=== PATIENT | male | born 1965 | race Caucasian/White ===

== ENCOUNTER 2022-06-21 17:53 | Inpatient (IN) | payer SELFPAY ==
[2022-06-21 20:33] LABS: Urine Blood Negative (Negative); Urine Glucose Negative (Negative); Urine Protein Negative (Negative); Urine Specific Gravity >=1.030 (1.005-1.030); Urine pH 5.5 (5.0-7.0)
--- NOTE | 2022-06-21 20:37 | RAD REPORT ---
EXAM DESCRIPTION: CT - CTHCSPWOC - 06/21/2022 8:24 pm CLINICAL HISTORY: Trauma, head and neck injury. AMS, fall COMPARISON: No comparisons TECHNIQUE: Axial 5 mm thick images of the head were obtained. Axial 2 mm thick images of the cervical spine were obtained with sagittal and coronal reconstruction images generated and reviewed. All CT scans are performed using dose optimization technique as appropriate and may include automated exposure control or mA/KV adjustment according to patient size. FINDINGS: CT HEAD WITHOUT CONTRAST: No acute hemorrhage, hydrocephalus or extra-axial collection is identified.No areas of brain edema or midline shift. Mild ethmoid sinus opacification.Mild thickening of both maxillary antra.The calvarium is intact. CT CERVICAL SPINE WITHOUT CONTRAST: No fracture or subluxation.Mild lower cervical degenerative changes are present. 2-3 mm degenerative anterolisthesis of C4 on 5.No prevertebral soft tissues swelling is identified. IMPRESSION: No acute intracranial or cervical spine findings. Mild lower cervical spondylosis.
[2022-06-21 20:57] LABS: Barbiturates NEGATIVE (NEGATIVE); Benzodiazepines POSITIVE (NEGATIVE); Cocaine NEGATIVE (NEGATIVE); METHAMPHETAM NEGATIVE (NEGATIVE); Methadone NEGATIVE (NEGATIVE); Opiates NEGATIVE (NEGATIVE); Phencyclidine NEGATIVE (NEGATIVE); THC Cannibis NEGATIVE (NEGATIVE)
[2022-06-21] MEDS ORDERED: NA CHLORIDE 0.9% 1,000 ML ONE (21:08)
[2022-06-21 21:34] LABS: Absolute Lymphocytes (CBC) 1.6 K/uL (0.7-4.9); Hematocrit 49.3 % (39.6-49.0); Lymphocytes % 15.7 % (15.3-44.8); MCV 89.3 fL (80-100); MPV 7.1 fL (7.6-11.3); RBC Red Blood Cell Count 5.53 M/uL (4.33-5.43)
[2022-06-21 21:42] LABS: Protime INR 0.92
[2022-06-21 21:57] LABS: ALT/SGPT 23 U/L (12-78); AST/SGOT 14 U/L (15-37); Albumin 3.1 g/dL (3.4-5.0); Alkaline Phosphatase 53 U/L (45-117); BUN Blood Urea Nitrogen 10 mg/dL (7-18); Bicarbonate 30 mmol/L (21-32); Bilirubin Direct 0.1 mg/dL (0-0.2); Bilirubin Total 0.5 mg/dL (0.2-1.0); Glomerular Filtration Rate 88 ml/min (=/>90); Glucose Level 96 mg/dL (74-106); Potassium 4.3 mmol/L (3.5-5.1); Protein, Total 6.4 g/dL (6.4-8.2); Sodium Level 140 mmol/L (136-145)
--- NOTE | 2022-06-21 23:15 | ER ---
Nurse's Notes [facility] Name: Julio César Farah Age: 57 yrs Sex: Male : 1965 Arrival Date: 06/21/2022 Time: 18:07 Bed 19 Private MD: Diagnosis: Poisoning by benzodiazepines, intentional self-harm Presentation: 06/21 18:07 Chief complaint: EMS states: "pt had a fall about an hour ago. the people that the pt edu was with caught him so he did not hit his head. he has been very drowsy and sleepy. his pupils have been pinpoint. he is about A\\T\\O X 1 at best. we gave nasal Narcan to be sure, but no affect. BGL was 85. otherwise stable vitals.". Coronavirus screen: At this time, the client does not indicate any symptoms associated with coronavirus-19. Ebola Screen: No symptoms or risks identified at this time. Initial Sepsis Screen: Does the patient meet any 2 criteria? No. Patient's initial sepsis screen is negative. Does the patient have a suspected source of infection? No. Patient's initial sepsis screen is negative. Risk Assessment: Do you want to hurt yourself or someone else? Patient reports no desire to harm self or others. Onset of symptoms was June 21, 2022. 18:07 Method Of Arrival: EMS: [facility] jd3 18:07 Acuity: TAWNYA 2 jd3 Historical: - Allergies: 18:12 Unable to obtain; jd3 - Home Meds: 18:12 Unable to obtain [Active]; jd3 - PMHx: 18:12 Unable to Obtain; jd3 - PSHx: 18:12 Unable to Obtain; jd3 - Immunization history:: Adult Immunizations unknown. - Social history:: Smoking status: unknown. - Family history:: not pertinent. - Hospitalizations: : No recent hospitalization is reported. Screenin:13 Abuse screen: Denies threats or abuse. Nutritional screening: No deficits noted. ll1 Tuberculosis screening: No symptoms or risk factors identified. Fall Risk IV access (20 points). Mental Status- Overestimates/Forgets Limitations (15 pts.). Total Garcia Fall Scale indicates Low Risk Score (25-44 pts). Fall prevention measures have been instituted. Side Rails Up X 2 Placed close to Nursing Station Frequent Obs/Assesments occuring Family Present and informed to notify staff if they need to leave bedside As available Patient and Family Educated on Fall Prevention Program and strategies. Assessment: 21:19 General: Appears in no apparent distress. Behavior is drowsy, Smells of alcohol. Pain: as6 Denies pain. Neuro: Level of Consciousness is lethargic. Respiratory: Respiratory effort is even, unlabored. 22:39 General: pt sleeping at this time. as6 23:09 General: pt removed vital sign equipment, got out of bed unassisted with calling for as6 help. urinated on floor, slipped in urine . 23:23 Neuro: Level of Consciousness is confused. tw5 06/22 00:54 General: Reports "I took a handful and 'something'. It is hard to talk right now." tw5 Patient denies wishing self harm at the moment. poison control- 24 observation since it is an unknown amount. it is okay to give extra benzos if he does have a seizure. No Geodon or Haldol. Add a CPK to labs. Feel free to call back. . . 19:05 Reassessment: ASSUMED CARE OF PT. PT SITTING IN BED ON PHONE. NO PAIN OR DISTRESS jj7 NOTED. PT CALM AND POLITE. WANTS LIGHTS DIMMED SO HE CAN LAY DOWN. 06/23 19:20 General: Appears in no apparent distress. Behavior is calm. Neuro: Level of kd3 Consciousness is awake, alert, obeys commands. Respiratory: Airway is patent Trachea midline Respiratory effort is even, unlabored. Vital Signs: 06/21 18:12 BP 147 / 100; Pulse 84; Resp 15 S; Temp 97.6(O); Pulse Ox 95% on R/A; Weight 90.72 kg jd3 (R); Height 5 ft. 10 in. (177.80 cm) (R); Pain 0/10; 21:16 BP 142 / 84; Pulse 83; Resp 16 S; Pulse Ox 93% on 3 lpm NC; as6 22:38 BP 112 / 63; Pulse 92; Resp 17 S; Pulse Ox 98% on 2 lpm NC; as6 23:08 BP 162 / 93; Pulse 91; Resp 19 S; Pulse Ox 100% on R/A; as6 18:12 Body Mass Index 28.70 (90.72 kg, 177.80 cm) jd3 ED Course: 18:07 Patient arrived in ED. jd3 18:11 Triage completed. jd3 18:13 Sarah Lowry RN is Primary Nurse. ll1 18:13 Arm band placed on. jd3 18:13 Patient placed in an exam room, on a stretcher. ll1 18:14 Patient has correct armband on for positive identification. Bed in low position. Call ll1 light in reach. Side rails up X2. Client placed on continuous cardiac and pulse oximetry monitoring. NIBP monitoring applied. quality assurance monitor final on. 19:00 Riki Gee MD is Attending Physician. rn 20:27 CT Head C Spine In Process Unspecified. EDMS 20:33 Urine Drug Screen Sent. as6 21:21 Acetaminophen Sent. as6 21:21 Basic Metabolic Panel Sent. as6 21:21 CBC with Diff Sent. as6 21:21 ETOH Level Sent. as6 21:21 Hepatic Function Sent. as6 21:21 PT-INR Sent. as6 21:21 Ptt, Activated Sent. as6 21:21 Salicylate Sent. as6 21:21 Inserted saline lock: 18 gauge in right antecubital area, using aseptic technique. as6 Blood collected. 23:14 Silvano Botello MD is Hospitalizing Provider. rn 06/22 04:49 No provider procedures requiring assistance completed. Patient admitted, IV remains in as6 place. 19:18 Primary Nurse role handed off by Sarha Lowry RN mw2 19:59 Erin Ruiz, JORGE is Primary Nurse. j7 06/23 09:15 Primary Nurse role handed off by Erin Ruiz RN bd 09:33 Fiordaliza Maddox, RN is Primary Nurse. ph 06/24 22:[address] [facility], spoke to Zena, she stated, "he is on a waiting list and that whoever told previous person that he would have a bed in the morning, was incorrect and shouldn't have told us that.". 22:50 Will now fax current chart to all available facilities on our list Psych list except s. 06/25 01:30 Issac from [facility] requested an Exclusionary form, as well as, a 24hr update of Blood wm Pressure. 03:04 Pt is technically admitted therefore Vitals are being recorded thru [facility] instead of [facility]. I printed out the recorded vitals from 06/22/22 \\T\\ 03:04 to 06/24/22 \\T\\ 20:48. Norma Shah filled out Exclusionary Form and I faxed updated list of Vitals, as well as, the Exclusionary Form. 03:17 Tho Camilo is Hospitalizing Provider. sb4 07:40 connected the nurse from [facility] with Aldo Patel for nurse to nurse. aurora 07:49 Attending Physician role handed off by Riki Gee MD cha 07:49 Yusef Velasquez MD is Attending Physician. gage Administered Medications: 06/21 21:21 Drug: NS 0.9% 1000 ml Route: IV; Rate: 1000 ml; Site: right antecubital; as6 Medication: 18:14 VIS not applicable for this client. ll1 Outcome: 23:14 Decision to Hospitalize by Provider. rn 06/22 04:49 Admitted to ER Hold. Please see [facility] for further documentation. as6 Condition: stable Instructed on the need for admit. 06/24 21:36 ER care complete, transfer ordered by . sb4 06/25 03:18 Decision to Hospitalize by Provider. sb4 09:46 Patient left the ED. mb8 Signatures: Dispatcher [employer] EDMS Viji Carter ph D, Corey, MD MD cha Nieto, Roman, MD MD rn Hall, Patricia, RN RNavies, Jonathon RN RN jd3 Marva Elliott mw2 Marla Ayala Lynsay RN RN ll1 Keena Arias Shira Farah tw5 Kiran Yanez RN RN as6 Ifeoma Mcneill RN RN kd3 Aldo Mclaughlin, JORGE PATEL mb8 Erin Ruiz RN RN richjDawn Torres PA-C PA-C sb4 Corrections: (The following items were deleted from the chart) 06/22 01:07 00:54 General: Reports "I took a handful and 'something'. It is hard to talk right tw5 now." Patient denies wishing self harm at the moment. poison control- 24 observation since it is an unknown amount. it is okay to give extra benzos if he does have a seizure. No geodon or haladol. . tw5 06/24 23:39 22:50 Will now start process over and fax current chart to all facilities on our list wm except 's wm
--- NOTE | 2022-06-21 23:15 | EDPHYS ---
Physician Documentation [facility] Name: Julio César Farah Age: 57 yrs Sex: Male : 1965 Arrival Date: 06/21/2022 Time: 18:07 Bed 19 Private MD: ED Physician Yusef Velasquez HPI: 06/21 19:13 This 57 yrs old Male presents to ER via EMS with complaints of fall, AMS. rn 19:13 The patient presents with decreased mental status, decreased responsiveness. Onset: The rn symptoms/episode began/occurred at an unknown time. Possible causes: alcohol. Associated signs and symptoms: Pertinent positives: confusion, Pertinent negatives: abdominal pain, chest pain, seizure, shortness of breath. Current symptoms: In the emergency department the patient's symptoms are unchanged from the initial presentation. It is unknown whether or not the patient has had similar symptoms in the past. The patient has not recently seen a physician. EMS reports AMS, unknown onset, patient reports "had a lot to drink", fell earlier, was caught so EMS told didn't hit his head. Patient does not recall events. Denies drug use. Denies pain or injury. . Historical: - Allergies: 18:12 Unable to obtain; jd3 - Home Meds: 18:12 Unable to obtain [Active]; jd3 - PMHx: 18:12 Unable to Obtain; jd3 - PSHx: 18:12 Unable to Obtain; jd3 - Immunization history:: Adult Immunizations unknown. - Social history:: Smoking status: unknown. - Family history:: not pertinent. - Hospitalizations: : No recent hospitalization is reported. ROS: 19:13 Constitutional: Negative for fever, chills, and weight loss, Eyes: Negative for injury, rn pain, redness, and discharge, Neck: Negative for injury, pain, and swelling, Cardiovascular: Negative for chest pain, palpitations, and edema, Respiratory: Negative for shortness of breath, cough, wheezing, and pleuritic chest pain, Abdomen/GI: Negative for abdominal pain, nausea, vomiting, diarrhea, and constipation, Back: Negative for injury and pain, MS/Extremity: Negative for injury and deformity, Skin: Negative for injury, rash, and discoloration, Neuro: Negative for headache, numbness, tingling, and seizure. Exam: 19:13 Constitutional: This is a well developed, well nourished patient who is awake, alert, rn smells of ETOH, arousable to voice Head/Face: Normocephalic, atraumatic. Eyes: Pupils equal round and reactive to light, extra-ocular motions intact. Periorbital areas with no swelling, redness, or edema. ENT: dry MM Cardiovascular: Regular rate and rhythm. No pulse deficits. Respiratory: No increased work of breathing, no retractions or nasal flaring. Abdomen/GI: Soft, non-tender, non-distended Skin: Warm, dry MS/ Extremity: Pulses equal, no cyanosis. Neurovascular intact. Full, normal range of motion. Equal circumference. Neuro: Somnolent, appears intoxicated, moves all 4 extremities, arousable to voice and tactile stimuli 21:22 ECG was reviewed by the Attending Physician. rn Vital Signs: 18:12 BP 147 / 100; Pulse 84; Resp 15 S; Temp 97.6(O); Pulse Ox 95% on R/A; Weight 90.72 kg jd3 (R); Height 5 ft. 10 in. (177.80 cm) (R); Pain 0/10; 21:16 BP 142 / 84; Pulse 83; Resp 16 S; Pulse Ox 93% on 3 lpm NC; as6 22:38 BP 112 / 63; Pulse 92; Resp 17 S; Pulse Ox 98% on 2 lpm NC; as6 23:08 BP 162 / 93; Pulse 91; Resp 19 S; Pulse Ox 100% on R/A; as6 18:12 Body Mass Index 28.70 (90.72 kg, 177.80 cm) jd3 MDM: 19:00 Patient medically screened. rn 23:10 Differential Diagnosis: CVA, electrolyte abnormality, alcohol intoxication, rn hypoglycemia, intracranial bleed, overdose, seizure, UTI, volume depletion. Data reviewed: vital signs, nurses notes, lab test result(s), EKG, radiologic studies, CT scan, and as a result, I will admit patient. Counseling: I had a detailed discussion with the patient and/or guardian regarding: the historical points, exam findings, and any diagnostic results supporting the discharge/admit diagnosis, lab results. 23:13 Response to treatment: There is no appreciated change of the patient's symptoms at this rn time, and as a result, I will admit patient. Admission orders: after a detailed discussion of the patient's condition and case, the admit orders are written by me. ED course: Pt + for benzos, still somnolent and unable to stand/walk, fell/slipped out of bed, reports feels weak and wobbly. Told me earlier he was drinking but ETOH neg. Will obs to hospitalist service. . 06/21 20:03 Order name: Acetaminophen; Complete Time: 22:04 rn 06/21 20:03 Order name: Basic Metabolic Panel; Complete Time: 22:04 rn 06/21 20:03 Order name: CBC with Diff; Complete Time: 22:04 rn 06/21 20:03 Order name: ETOH Level; Complete Time: 22:04 rn 06/21 20:03 Order name: Hepatic Function; Complete Time: 22:04 rn 06/21 20:03 Order name: PT-INR; Complete Time: 22:04 rn 06/21 20:03 Order name: Ptt, Activated; Complete Time: 22:04 rn 06/21 20:03 Order name: Salicylate; Complete Time: 22:04 rn 06/21 20:03 Order name: Urine Drug Screen; Complete Time: 21:10 rn 06/21 20:33 Order name: Urine Dipstick-Ancillary; Complete Time: 20:49 EDMS 06/21 23:19 Order name: SARS RAPID; Complete Time: 00:49 as6 06/22 01:11 Order name: CPK; Complete Time: 01:53 sb4 06/25 05:30 Order name: CBC with Automated Diff; Complete Time: 05:33 EDMS 06/25 05:39 Order name: Basic Metabolic Panel; Complete Time: 07:51 EDMS 06/21 20:03 Order name: EKG; Complete Time: 20:05 rn 06/21 20:03 Order name: EKG - Nurse/Tech; Complete Time: 21:21 rn 06/21 20:03 Order name: IV Saline Lock; Complete Time: 21:21 rn 06/21 20:03 Order name: Labs collected and sent; Complete Time: 21:21 rn 06/21 20:03 Order name: Urine Dipstick-Ancillary (obtain specimen); Complete Time: 20:33 rn 06/21 20:03 Order name: CT Head C Spine; Complete Time: 20:49 rn 06/25 08:37 Order name: Diet Finger Food; Complete Time: 08:37 mb8 EC: Rate is 82 beats/min. Rhythm is regular. QRS [place] is Normal. ND interval is normal. QRS rn interval is normal. QT interval is normal. No Q waves. T waves are Normal. No ST changes noted. Clinical impression: Normal ECG. Interpreted by me. Reviewed by me. Administered Medications: 21: Drug: NS 0.9% 1000 ml Route: IV; Rate: 1000 ml; Site: right antecubital; as6 Disposition Summary: 06/25/22 03:18 Hospitalization Ordered Hospitalization Status: Inpatient Admission(06/25/22 03:18) sb4 Provider: Tho Camilo(06/25/22 03:18) sb4 Location: [facility] ER HOLD(06/25/22 03:18) sb4 Condition: Fair(06/25/22 03:18) sb4 Problem: new(06/25/22 03:18) sb4 Symptoms: are unchanged(06/25/22 03:18) sb4 Bed/Room Type: Standard(06/25/22 03:18) sb4 Room Assignment: ERHOLD-(06/25/22 03:18) sb4 Diagnosis - Poisoning by benzodiazepines, intentional self-harm(06/25/22 03:18) sb4 Forms: - Medication Reconciliation Form sb4 - SBAR form sb4 Signatures: Dispatcher [employer] EDMS Rosalia Martinez RN RN mw Anderson, Corey, MD MD cha Nieto, Roman, MD MD rn Garcia, Cindy, RN RN cg Davies, Jonathon, RN RN jd3 Slawson, Ashby, RN RN as6 Dawn Shah PA-C PA-Jalil sb4 Corrections: (The following items were deleted from the chart) 06/22 00:42 06/21 23:14 Telemetry/MedSurg (observation) rn cg 06/22 00:42 06/21 23:14 rn cg 06/24 20:24 06/22 00:42 [facility] ER HOLD cg 06/24 20:24 06/22 00:42 ERHOLD- [facility] 06/24 21:35 06/21 23:14 Observation rn sb4 06/24 21:35 06/21 23:14 Silvano Botello rn sb4 06/24 21:35 06/21 23:14 Stable rn sb4 06/24 21:35 06/21 23:14 new rn sb4 06/24 21:35 06/21 23:14 are unchanged rn sb4 06/24 21:35 06/21 23:14 Standard rn sb4 06/24 21:35 06/21 23:14 Altered mental status, unspecified rn sb4 06/24 21:35 20:24 Telemetry/MedSurg (observation) mw sb4 :35 20:24 mw sb4 06/25 03:16 06/24 21:36 Psych Physician sb4 sb4 06/25 03:16 06/24 21:36 Psych Facility sb4 sb4 06/25 03:16 06/24 21:36 Higher level of care sb4 sb4 06/25 03:16 06/24 21:36 Stable sb4 sb4 06/25 03:16 06/24 21:36 new sb4 sb4 06/25 03:16 06/24 21:36 are unchanged sb4 sb4 06/25 03:16 06/24 21:36 Suicide attempt sb4 sb4 06/25 03:16 06/24 21:36 Poisoning by benzodiazepines, intentional self-harm sb4 sb4
[2022-06-22 00:47] LABS: SARS-CoV-2 Antigen Rapid Res Negative (Negative)
--- NOTE | 2022-06-22 01:29 | P.HP ---
Certification for Inpatient Patient admitted to: Observation With expected LOS: <2 Midnights Patient will require the following post-hospital care: None Practitioner: I am a practitioner with admitting privileges, knowledge of patient current condition, hospital course, and medical plan of care. Services: Services provided to patient in accordance with Admission requirements found in Title 42 Section 412.3 of the Code of Federal Regulations Patient History Date of Service: 06/22/22 Reason for admission: Benzo OD History of Present Illness: Patient is a 57-year-old male who presented to the ED via EMS with AMS. He was alert and oriented x1 and very drowsy. They administered Narcan without any change in mental status. His pupils were noted to be pinpoint. He was not answering questions appropriately and accurate history could not be obtained. Head CT negative. Upon my evaluation, he had become more alert but still drowsy. He denies medical history, daily medications, or major surgeries. He reports that he took a handful of pills this evening. UDS positive for benzodiazepines. He reports that he was trying to commit suicide but he denies current SI. Poison control was contacted and recommended to observe patient for 24 hours with seizure precautions in place. Stated that it is okay to administer more benzodiazepines if seizure-like activity occurs but do not administer Haldol or Geodon. He was given 1L fluid in ED. Patient will be admitted for observation. Allergies No Known Allergies Allergy (Unverified 06/22/22 03:05) Home medications list reviewed: Yes (NA) - Past Medical/Surgical History Diabetic: No Past Medical History: Patient denies medical history Past Surgical History: Patient denies surgical history Psychosocial/ Personal History: Patient lives at home alone. He states he does not have any family. - Family History Family History: Reviewed- Non-Contributory - Social History Smoking Status: Current every day smoker Alcohol use: Yes CD- Drugs: Yes Caffeine use: Yes Place of Residence: Home Review of Systems Unremarkable Physical Examination - Physical Exam General: Alert, In no apparent distress HEENT: Atraumatic, PERRLA, EOMI, Sclerae nonicteric Neck: Supple, 2+ carotid pulse no bruit, No LAD, Without JVD or thyroid abnormality Respiratory: Clear to auscultation bilaterally, Normal air movement Cardiovascular: Regular rate/rhythm, Normal S1 S2 Gastrointestinal: Normal bowel sounds, No tenderness Musculoskeletal: No tenderness Integumentary: No rashes Neurological: Normal speech, Normal strength at 5/5 x4 extr, Normal tone, Normal affect - Studies Laboratory Data (last 24 hrs) 06/21/22 21:20: PT 10.1, INR 0.92, APTT 28.9 06/21/22 21:20: WBC 10.40, Hgb 16.8, Hct 49.3 H, Plt Count 168 06/21/22 21:20: Sodium 140, Potassium 4.3, BUN 10, Creatinine 1.00, Glucose 96, Total Bilirubin 0.5, AST 14 L, ALT 23, Alkaline Phosphatase 53 Assessment and Plan - Problems (Diagnosis) (1) Benzodiazepine (tranquilizer) overdose Current Visit: Yes Status: Acute - Plan -Poison control recommended to observe patient for 24 hours with seizure precautions in place. Stated that it is okay to administer more benzodiazepines if seizure-like activity occurs but do not administer Haldol or Geodon. -Psychiatry consulted -IV fluids with thiamine and folic acid -Monitor and replete electrolytes per protocol -Reconcile and continue home medications -Lovenox for VTE ppx -Full code Discharge Plan: Home Plan to discharge in: 24 Hours - Advance Directives Does patient have a Living Will: No Does patient have a Durable POA for Healthcare: No - Code Status/Comfort Care Code Status Assessed: Yes (Full) Critical Care: No Time Spent Managing Pts Care (In Minutes): 50
[2022-06-22] MEDS ORDERED: ACETAMINOPHEN 500 MG TAB PO PRN (03:05)
[2022-06-22] MEDS ORDERED: ONDANSETRON 4 MG/2 ML VIAL IV PRN (03:05)
[2022-06-22] MEDS: NA CHLORIDE 0.9% 1,000 ML IV SCH ×2 (03:05→13:05)
[2022-06-22] MEDS ORDERED: NA CHLORIDE 0.9% 1,000 ML ONE (03:09)
[2022-06-22 04:57] VITALS: BMI 28.7
[2022-06-22] MEDS: THIAMINE 200 MG/2 ML INJ IVP SCH (09:00)
[2022-06-22] MEDS: FOLIC ACID 1 MG in NA CHLORIDE 0.9% 50 ML IV SCH (09:00)
[2022-06-22] MEDS ORDERED: FOLIC ACID 5 MG/ML VIAL IVP SCH (09:00)
--- NOTE | 2022-06-22 14:02 | EKG ---
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
[2022-06-23] MEDS: FOLIC ACID 1 MG in NA CHLORIDE 0.9% 50 ML IV SCH (09:00)
[2022-06-23] MEDS: THIAMINE 200 MG/2 ML INJ IVP SCH (09:00)
[2022-06-23] MEDS: NA CHLORIDE 0.9% 1,000 ML IV SCH ×2 (09:05→19:05)
[2022-06-23] MEDS ORDERED: NA CHLORIDE 0.9% 1,000 ML ONE (10:37)
[2022-06-23] MEDS ORDERED: THIAMINE 200 MG/2 ML INJ ONE (10:37)
--- NOTE | 2022-06-23 15:58 | P.PN ---
Subjective Date of Service: 06/23/22 Chief Complaint: Benzo OD Patient is awake and alert. He denies any suicidal ideation. He states that he is from out of town and currently is residing in a hotel. Physical Examination - Vital Signs Temperature: 97.2 F Blood Pressure: 142/80 Pulse: 83 Respirations: 18 Pulse Ox (%): 98 Assessment And Plan - Current Problems (Diagnosis) (1) Suicide attempt Current Visit: Yes Status: Acute (2) Benzodiazepine (tranquilizer) overdose Current Visit: Yes Status: Acute - Plan Patient seen by psychiatry and inpatient psychiatry recommended. Patient denies being suicidal, his affect is flat. Behavioral health to reassess patient regarding suicide ideation and inpatient psych placement. Clinically stable for transfer.
[2022-06-24] MEDS: NA CHLORIDE 0.9% 1,000 ML IV SCH ×2 (05:05→15:05)
--- NOTE | 2022-06-24 07:55 | CON ---
Date of Consultation: 06/22/2022 Reason For Consult: Evaluate patient for severe depression with suicidal attempt and make recommendation. History Of Present Illness: Mr. Farah is a 57-year-old male with no significant psychiatric history who was brought to the emergency department on the June 21 with altered mental status. On arrival to the ER he was found to be alert, but drowsy, he subsequently inform the ER physician that he has attempted suicide by taking a handful of pills(presence of benzodiazepines only present in urine toxicology). On interview, the patient also admitted to have attempted suicide in the hotel room in [place], he states he took, Opioids and Benzodiazepines he got from a friend then consumed some alcohol with it. He states he could not remember anything afterwards and subsequently found himself here. He refuse to provide more details to what lead to him attempting suicide stating "You are the psychiatrist figure it out". He did not respond when asked if he was depressed, anxious or angry instead smiling. 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 Patient states his plan was never to go back to work as he was to end it all. Patient is over 17 years and has a sister who lives in [place]. He refused to provide contact information of his sister and stated that he does not consent to her being contacted for further information. He states that he lives alone in an apartment and do have some friends, but again refused to provide contact information to the provider. Patient was very belligerent and refusing to discuss the events precipitating the suicide attempt. Objective: Vital Signs: Blood pressure 134/76, pulse rate 71, respiratory rate 18, temperature 98.2, O2 sat on room air is 98%. Mental Status Examination: Patient is a well-nourished male, met lying in bed, shirtless. He is conscious and not in any obvious cardiopulmonary distress. He is alert and oriented x 3. Patient is not cooperating with the interview, however his speech is spontaneous, soft and exhibit paucity of speech, his volume of speech is low. He exhibits isolation affect. He is not observed to be internally preoccupied. His Insight/Judgment/Impulse control is poor. Language skills fair. 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 Patient did express any remorse following his failed attempt, he is not future oriented and uncooperative with assessment. Diagnosis: Major depressive disorder, severe without psychotic features. Plan: Recommend: Psychiatric inpatient hospitalization for safety and management of his condition. Recommend: [facility]One [facility]ation Discussed recommendation with treatment team. JAYSON Voice ID: [id number] Report ID: [id number] DARYL
[2022-06-24] MEDS: THIAMINE 200 MG/2 ML INJ IVP SCH (09:00)
[2022-06-24] MEDS: FOLIC ACID 1 MG in NA CHLORIDE 0.9% 50 ML IV SCH (09:00)
--- NOTE | 2022-06-24 17:49 | P.PN ---
Subjective Date of Service: 06/24/22 Chief Complaint: Benzo OD No new complaint. Patient is awake and alert Patient was not forthcoming when I tried to obtain more history with regards to any prescription medication, how he obtained the benzodiazepines and the purpose of overdosing the benzos. He would rather talk to behavioral health. Physical Examination - Vital Signs Temperature: 98.2 F Blood Pressure: 132/74 Pulse: 82 Respirations: 16 Pulse Ox (%): 100 Assessment And Plan - Current Problems (Diagnosis) (1) Suicide attempt Current Visit: Yes Status: Acute (2) Benzodiazepine (tranquilizer) overdose Current Visit: Yes Status: Acute - Plan Patient seen by psychiatry and inpatient psychiatry recommended. He was reassessed by [facility] behavioral health who reported patient was quite emotional and crying during the assessment [facility] recommend inpatient psychiatry Patient is clinically stable for transfer. I am told he would have a bed at [facility] tomorrow. Continue supportive measures.
[2022-06-25] MEDS: NA CHLORIDE 0.9% 1,000 ML IV SCH (01:05)
[2022-06-25 05:23] LABS: Absolute Lymphocytes (CBC) 2.8 K/uL (0.7-4.9); Hematocrit 47.3 % (39.6-49.0); Lymphocytes % 35.8 % (15.3-44.8); MCV 88.5 fL (80-100); MPV 7.3 fL (7.6-11.3); RBC Red Blood Cell Count 5.35 M/uL (4.33-5.43)
[2022-06-25 05:39] LABS: Potassium 4.1 mmol/L (3.5-5.1)
[2022-06-25 07:29] VITALS: BP 125/84; TEMP 97.1
[2022-06-25 07:32] VITALS: O2SAT 99
[2022-06-25] MEDS: FOLIC ACID 1 MG in NA CHLORIDE 0.9% 50 ML IV SCH (07:38)
[2022-06-25] MEDS: THIAMINE 200 MG/2 ML INJ IVP SCH (07:38)
--- NOTE | 2022-06-25 11:00 | P.DS ---
Admission Date: 06/22/22 Discharge Date: 06/25/22 Disposition: ROUTINE DISCHARGE Reason for Admission: Benzo OD - Problems (1) Suicide attempt Status: Acute (2) Benzodiazepine (tranquilizer) overdose Status: Acute Brief History of Present Illness: Patient is a 57-year-old male who presented to the ED via EMS with AMS. He was alert and oriented x1 and very drowsy. They administered Narcan without any change in mental status. His pupils were noted to be pinpoint. He was not answering questions appropriately and accurate history could not be obtained. Head CT negative. He denied medical history, daily medications, or major surgeries. He reports that he took a handful of pills. UDS positive for benzodiazepines. He reports that he was trying to commit suicide but he denies current SI. Poison control was contacted and recommended to observe patient for 24 hours with seizure precautions in place. He was given 1L fluid in ED. Patient admitted for further management. Hospital Course: Patient admitted to the medical floor and treated supportively with IV fluid. He became more alert and oriented, no agitation. He was seen by psychiatry Dr. Barnard who recommended inpatient psychiatry. He was reassessed by [facility] health who reported patient was quite emotional and crying during the assessment. [facility] also recommended inpatient psychiatry. He was not forthcoming with me during my interaction. He has been accepted for inpatient psychiatry at [facility]. He is clinically stable for transfer. Vital Signs/Physical Exam: Temp Pulse Resp BP Pulse Ox 97.1 F 96 H 16 125/84 99 06/25/22 07:29 06/25/22 07:29 06/25/22 07:29 06/25/22 07:29 06/25/22 07:29 General: Alert, In no apparent distress, Oriented x3 HEENT: PERRLA, Mucous membr. moist/pink, EOMI Neck: JVD not distended Respiratory: Clear to auscultation bilaterally, Normal air movement Cardiovascular: No edema, Regular rate/rhythm, Normal S1 S2 Gastrointestinal: Normal bowel sounds, Soft and benign, Non-distended, No tenderness Musculoskeletal: No swelling Integumentary: No rashes Neurological: Normal strength at 5/5 x4 extr Laboratory Data at Discharge: WBC 7.90 K/uL (4.3-10.9) 06/25/22 05:11 Hgb 16.0 g/dL (13.6-17.9) 06/25/22 05:11 Hct 47.3 % (39.6-49.0) 06/25/22 05:11 Plt Count 182 K/uL (152-406) 06/25/22 05:11 PT 10.1 SECONDS (9.5-12.5) 06/21/22 21:20 INR 0.92 06/21/22 21:20 APTT 28.9 SECONDS (24.3-36.9) 06/21/22 21:20 Sodium 142 mmol/L (136-145) 06/25/22 05:11 Potassium 4.1 mmol/L (3.5-5.1) 06/25/22 05:11 BUN 15 mg/dL (7-18) 06/25/22 05:11 Creatinine 1.04 mg/dL (0.55-1.3) 06/25/22 05:11 Glucose 90 mg/dL (74-106) 06/25/22 05:11 Total Bilirubin 0.5 mg/dL (0.2-1.0) 06/21/22 21:20 AST 14 U/L (15-37) L 06/21/22 21:20 ALT 23 U/L (12-78) 06/21/22 21:20 Alkaline Phosphatase 53 U/L (45-117) 06/21/22 21:20 Followup: NONE,NONE [Primary Care Provider] - Time spent managing pt's care (in minutes): 35
== END 2022-06-25 09:45 | disposition home or self-care (01) | DRG 918 ==
LOC: ER 17:53 → ERHOLD 06-22 00:30 → OBSVTOIN 06-22 15:48 → ERHOLD 06-22 18:33
PROVIDERS: ADMIT Internal Medicine; ATTEND Internal Medicine
DX: T42.4X2A Poisoning by benzodiazepines, intentional self-harm, initial encounter (principal); F33.2 Major depressive disorder, recurrent severe without psychotic features; F17.200 Nicotine dependence, unspecified, uncomplicated; Z60.2 Problems related to living alone; Z20.822 Contact with and (suspected) exposure to COVID-19
CPT/HCPCS: 36415; 70450; 72125; 80048; 80076; 80307; 80320; 80329; 81003; 82550; 85025; 85610; 85730; 87811; 93005; 94760; 99285; G0378; J3411; J7030